=== PATIENT | female | born 1945 ===

== ENCOUNTER 2018-08-20 14:58 | Inpatient (IN) | payer OTHER ==
[~2018-08-20] VITALS: Ht 152.4 cm; Wt 72.6 kg
[~2018-08-20 14:58] MED LIST: CARDURA8 MG PO; CELEXA40 MG PO; PERCOCET 5/3251 TAB PO; TOPROL XL25 MG PO; [UNRECOGNIZED DRUG - OTHER] PO
== END 2018-08-24 12:10 | disposition home or self-care (01) | DRG 581 ==
LOC: MEDI 14:58 → SURG 14:59 → SEC-K 14:59 → SURG 08-21 00:33 → MEDJ 08-23 15:30
PROVIDERS: Specialist; ADMIT Internal Medicine Cardiovascular Disease
PROC: 8E0ZXY6 Isolation (ICD-10-PCS; 2018-08-20)
PROC: 0W9F0ZX Drainage of Abdominal Wall, Open Approach, Diagnostic (ICD-10-PCS; principal; 2018-08-21 13:15)
DX: L02.211 Cutaneous abscess of abdominal wall (principal); E11.628 Type 2 diabetes mellitus with other skin complications; I10 Essential (primary) hypertension; E78.2 Mixed hyperlipidemia; Z88.6 Allergy status to analgesic agent; B96.4 Proteus (mirabilis) (morganii) as the cause of diseases classified elsewhere

== ENCOUNTER → 2018-08-28 | Outpatient (CLI) | payer OTHER | END | disposition home or self-care (01) | LOC: WOUND MED 12:01 | DX: E11.622 Type 2 diabetes mellitus with other skin ulcer (principal); L02.215 Cutaneous abscess of perineum | CPT/HCPCS: 11042; G0463; A4554; A4930; A6196; A6216; A6219 ==

== ENCOUNTER → 2018-09-04 | Outpatient (CLI) | payer OTHER | END | disposition home or self-care (01) | LOC: WOUND MED 10:25 | DX: E11.622 Type 2 diabetes mellitus with other skin ulcer (principal); L02.215 Cutaneous abscess of perineum; L98.492 Non-pressure chronic ulcer of skin of other sites with fat layer exposed | CPT/HCPCS: 11042; A4554; A4930; A6216; A6219 ==

== ENCOUNTER → 2018-09-11 | Outpatient (CLI) | payer OTHER | END | disposition home or self-care (01) | LOC: WOUND MED 10:50 | DX: E11.622 Type 2 diabetes mellitus with other skin ulcer (principal); L02.215 Cutaneous abscess of perineum; L98.492 Non-pressure chronic ulcer of skin of other sites with fat layer exposed | CPT/HCPCS: 11042; A4554; A4930; A6216; A6219 ==

== ENCOUNTER → 2018-09-18 | Outpatient (CLI) | payer OTHER | END | disposition home or self-care (01) | LOC: WOUND MED 10:55 | DX: E11.622 Type 2 diabetes mellitus with other skin ulcer (principal); L02.215 Cutaneous abscess of perineum; L98.492 Non-pressure chronic ulcer of skin of other sites with fat layer exposed | CPT/HCPCS: 11042; A4554; A4930; A6216; A6219 ==

== ENCOUNTER → 2018-09-25 | Outpatient (CLI) | payer OTHER | END | disposition home or self-care (01) | LOC: WOUND MED 10:46 | DX: E11.622 Type 2 diabetes mellitus with other skin ulcer (principal); L02.215 Cutaneous abscess of perineum; L98.492 Non-pressure chronic ulcer of skin of other sites with fat layer exposed | CPT/HCPCS: 11042; A4554; A4930; A6216; A6219 ==

== ENCOUNTER → 2018-10-04 | Outpatient (CLI) | payer OTHER | END | disposition home or self-care (01) | LOC: WOUND MED 09:30 | DX: E10.621 Type 1 diabetes mellitus with foot ulcer (principal); L02.215 Cutaneous abscess of perineum; L98.492 Non-pressure chronic ulcer of skin of other sites with fat layer exposed | CPT/HCPCS: A4554; A4930; A6216; G0463 ==